=== PATIENT | female | born 1995 | race African-American/Black ===

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

== ENCOUNTER 2017-10-29 14:06 | Emergency (ER) | payer MEDICAID ==
[2017-10-29 14:40] VITALS: BP 111/67
[2017-10-29] MEDS ORDERED: HYDROCODONE/ACETAMINOPHEN 5-325 MG TABLET PO ONE (15:19)
[2017-10-29] MEDS ORDERED: PENICILLIN V POTASSIUM 500 MG TABLET PO ONE (15:19)
--- NOTE | 2017-10-29 15:23 | ER Document Report ---
HPI - HPI Patient complains to provider of: Dental pain Onset: Last week Onset/Duration: Persistent Quality of pain: Achy Pain Level: 4 Context: Patient presents complaining of for the past week. Patient states that she notices pus draining from around her gums whenever she pushes on them. Patient denies any fever. Associated Symptoms: Other - Dental pain. denies: Fever Exacerbated by: Denies Relieved by: Denies Similar symptoms previously: No Recently seen / treated by doctor: No - ROS ROS below otherwise negative: Yes Systems Reviewed and Negative: Yes All other systems reviewed and negative - CONSTITUTIONAL Constitutional: DENIES: Fever - EENT Notes: Dental pain - RESPIRATORY Respiratory: DENIES: Coughing - GASTROINTESTINAL Gastrointestinal: DENIES: Nausea, Patient vomiting - MUSCULOSKELETAL Musculoskeletal: DENIES: Back Pain, Neck Pain - DERM Skin Color: Normal Skin Problems: None Past Medical History - General Information source: Patient - Social History Smoking Status: Never Smoker Frequency of alcohol use: None Drug Abuse: None Occupation: None Lives with: Family Family History: Reviewed & Not Pertinent - Medical History Medical History: Negative Renal/ Medical History: Denies: Hx Peritoneal Dialysis Skin Medical History: Comment Only Hx MRSA - MRSA 11/08 BACK Surgical Hx: Negative Vertical Provider Document - CONSTITUTIONAL Agree With Documented VS: Yes General Appearance: No Apparent Distress - INFECTION CONTROL TRAVEL OUTSIDE OF THE [place] IN LAST 30 DAYS: No - HEENT HEENT: Atraumatic, Normocephalic. negative: Pharyngeal Exudate, Pharyngeal Tenderness, Pharyngeal Erythema, Tympanic Membrane Red, Tympanic Membrane Bulging Mouth Diagram: 1 - Gingival inflammation, purulent drainage able to be expressed, no sublingual or submental swelling, no trismus. - NECK Neck: Normal Inspection, Supple. negative: Lymphadenopathy-Left, Lymphadenopathy-Right - RESPIRATORY Respiratory: Breath Sounds Normal, No Respiratory Distress - CARDIOVASCULAR Cardiovascular: Regular Rate, Regular Rhythm - BACK Back: Normal Inspection - MUSCULOSKELETAL/EXTREMETIES Musculoskeletal/Extremeties: MAEW - NEURO Level of Consciousness: Awake, Alert, Appropriate Motor/Sensory: No Motor Deficit - DERM Integumentary: Warm, Dry Course - Vital Signs Vital signs: Temp Pulse Resp BP Pulse Ox 98.7 F 74 16 111/67 100 10/29/17 14:39 10/29/17 14:39 10/29/17 14:39 10/29/17 14:39 10/29/17 14:39 Discharge - Discharge Clinical Impression: Infected dental caries Condition: Stable Disposition: HOME, SELF-CARE Instructions: Dental Infection or Abscess ([facility]), Oral Narcotic Medication ([facility]) , Penicillins ([facility]) Additional Instructions: Return immediately for any new or worsening symptoms Followup with your primary care provider, call tomorrow to make a followup appointment Follow-up with a dental care provider Prescriptions: Hydrocodone/Acetaminophen [[place] 5-325 Tablet] 1 each PO Q4 PRN #8 tablet PRN Reason: Naproxen [Naprosyn 250 Nmg Tablet] 1 tab PO BID #14 tablet Penicillin V Potassium [Penicillin Vk 500 mg Tablet] 500 mg PO BID #20 tablet Referrals: [facility] [Provider Group] - Follow up as needed DENTISTRY [Provider Group] - Follow up as needed [facility] [Provider Group] - Follow up as needed
== END 2017-10-29 15:33 | disposition home or self-care (01) ==
LOC: ER 14:06
DX: K04.7 Periapical abscess without sinus (principal); K02.9 Dental caries, unspecified; K08.89 Other specified disorders of teeth and supporting structures
CPT/HCPCS: 99282; J3490

== ENCOUNTER 2018-12-21 17:36 | Emergency (ER) | payer SELFPAY ==
[2018-12-21 18:13] VITALS: BP 112/69
[2018-12-21] MEDS ORDERED: LIDOCAINE 5% (700 MG) TRANSDERMAL ADH..PATCH TP ONE (19:06)
[2018-12-21] MEDS ORDERED: KETOROLAC TROMETHAMINE 60 MG/2 ML SDV IM ONE (19:06)
[2018-12-21] MEDS ORDERED: ACETAMINOPHEN 325 MG TABLET PO ONE (19:06)
--- NOTE | 2018-12-21 19:13 | ER Document Report ---
HPI - HPI Patient complains to provider of: back pain Time Seen by Provider: 12/21/18 19:05 Pain Level: 2 Context: Healthy 23-year-old female presents the emergency department with chief complaint of lower back pain injured at work yesterday. She said that she woke up this morning and had pain in her left lower back. She said that it took her a while to get out of bed. She denies any urinary retention, bowel incontinence, saddle paresthesia, fevers, IV drug use. She denies any radiculopathy limb weakness or paresthesias. No other complaints - CONSTITUTIONAL Constitutional: DENIES: Fever, Chills - REPRODUCTIVE Reproductive: DENIES: : Past Medical History - Social History Smoking Status: Never Smoker Chew tobacco use (# tins/day): No Frequency of alcohol use: None Drug Abuse: None Family History: Reviewed & Not Pertinent Patient has suicidal ideation: No Patient has homicidal ideation: No Renal/ Medical History: Denies: Hx Peritoneal Dialysis Skin Medical History: Comment Only Hx MRSA - MRSA 11/08 BACK Vertical Provider Document - CONSTITUTIONAL Notes: PHYSICAL EXAMINATION: Reviewed vital signs and charting by RN GENERAL: Alert, interacts well. No acute distress. HEAD: Normocephalic, atraumatic. EYES: Pupils equal and round. Extraocular movements intact. ENT: Oral mucosa moist, tongue midline. NECK: Full range of motion. Trachea midline. ABDOMEN: soft, non-tender. No distention. Bowel sounds present BACK: No midline spinal tenderness, tenderness along the paraspinal muscles on the left side in the area of T12-L3 with no reproducible radiculopathy EXTREMITIES: Moves all 4 extremities spontaneously. No edema, No cyanosis. PSYCH: Normal affect, normal mood. SKIN: Warm, dry, normal turgor. No rashes or lesions noted. - INFECTION CONTROL TRAVEL OUTSIDE OF THE [place] IN LAST 30 DAYS: No Course - Re-evaluation Re-evalutation: 12/21/18 19:07 Presentation of a well appearing patient complaining of acute on chronic back pain. No rapid progression of symptoms, systemic symptoms including fevers, chills, weight loss, history of recent bacterial infection, bilateral symptoms, numbness, weakness, difficulty walking, urinary retention or bowel incontinence, personal history of cancer, immunosuppression, diabetes, known AAA, or history of IV drug use. Exam is without point tenderness over vertebral bodies, pulsatile abdominal mass, and patient has symmetric and intact lower extremity strength, sensation, and reflexes without clonus. 2+ symmetric medial malleolar and dorsalis pedis pulses Based on history and physical, I have a very low suspicion of a concerning etiology of pain including epidural compression syndrome, spinal infection, transverse myelitis, malignancy, abdominal aortic aneurysm, renal colic, acute lower extremity claudication, neurogenic claudication, ankylosing spondylitis, or other intra-abdominal process. Due to absence of concerning risk factors in history and physical as well as absence of rapidly progressive, severe, or bilateral symptoms, will defer imaging at this point. - Vital Signs Vital signs: Temp Pulse Resp BP Pulse Ox 98.3 F 87 18 112/69 97 12/21/18 18:12 12/21/18 18:12 12/21/18 18:12 12/21/18 18:12 12/21/18 18:12 Discharge - Discharge Clinical Impression: Low back pain Qualifiers: Chronicity: acute Back pain laterality: left Sciatica presence: without sciatica Qualified Code(s): M54.5 - Low back pain Condition: Good Disposition: HOME, SELF-CARE Instructions: Ice Packs ([facility]), Low Back Pain ([facility]), Pain Medication Injection ([facility]) Additional Instructions: You have been seen in the Emergency Department (ED) today for back pain. Your workup and exam have not shown any acute abnormalities and you are likely suffering from muscle strain or possible problems with your discs, but there is no treatment that will fix your symptoms at this time. Please take Motrin 600 mg every 6 hours and/or Tylenol every 6 hours for pain/inflammation. You should also purchase a local lidocaine cream such as "aspercreme with lidocaine" and use per bottle instructions to the affected area. Apply heat to the area as often as you are able. Continue to keep active and avoid prolonged periods of bed rest. Please follow up with your doctor as soon as possible regarding today's ED visit and your back pain. Return to the ED for worsening back pain, fever, weakness or numbness of either leg, or if you develop either (1) an inability to urinate or have bowel movements, or (2) loss of your ability to control your bathroom functions (if you start having "accidents"), or if you develop other new sympt oms that concern you.concern you. Prescriptions: Cyclobenzaprine HCl [Flexeril 5 mg Tablet] 1 - 2 tab PO TID PRN #15 tablet PRN Reason: Forms: Return to Work
== END 2018-12-21 19:23 | disposition home or self-care (01) ==
LOC: ER 17:36
DX: M54.5 Low back pain (principal); Z86.14 Personal history of Methicillin resistant Staphylococcus aureus infection
CPT/HCPCS: 96374; 99283; J1885

== ENCOUNTER 2018-12-26 21:20 | Emergency (ER) | payer SELFPAY ==
[2018-12-26 21:30] VITALS: BP 114/83
[2018-12-26 23:32] LABS: APPEARANCE,URINE CLEAR; BILIRUBIN,URINE NEGATIVE (NEGATIVE); COLOR,URINE YELLOW; GLUCOSE, URINE NEGATIVE (NEGATIVE); KETONES,URINE NEGATIVE (NEGATIVE); LEUKOCYTE ESTERASE,URINE SMALL (NEGATIVE); NITRITE,URINE NEGATIVE (NEGATIVE); PROTEIN,URINE NEGATIVE (NEGATIVE); URINE SPECIFIC GRAVITY 1.011; UROBILINOGEN,URINE NEGATIVE mg/dL (<2.0)
[2018-12-27] MEDS ORDERED: IBUPROFEN 600 MG TABLET PO ONE (02:20)
[2018-12-27] MEDS ORDERED: HYDROCODONE/ACETAMINOPHEN 5-325 MG TABLET PO ONE (02:20)
--- NOTE | 2018-12-27 02:21 | ER Document Report ---
ED General - General Chief Complaint: Urinary Problem Stated Complaint: POSSIBLE KIDNEY INFECTION Time Seen by Provider: 12/27/18 00:34 Mode of Arrival: Ambulatory Information source: Patient Notes: 23-year-old female presents with complaints of left flank pain, dysuria. Patient states that her back pain started 1 week prior to arrival. She was seen at that time and administered an injection and states that she had improvement of pain but that it returned 2 days ago when it is now associated with painful urination, increased urinary frequency. Patient denies hematuria, history of kidney stone. Patient states that she does have some mild white discharge. Patient only has sex with females. She denies prior history of STD. TRAVEL OUTSIDE OF THE [place] IN LAST 30 DAYS: No - HPI Onset: Just prior to arrival Onset/Duration: Sudden Quality of pain: Achy Severity: Mild Associated symptoms: Other - Dysuria, left flank pain. denies: Chest pain, Fever, Nausea, Vomiting, Shortness of breath Exacerbated by: Denies Relieved by: Denies Similar symptoms previously: Yes Recently seen / treated by doctor: Yes - Related Data Allergies/Adverse Reactions: No Known Allergies Allergy (Verified 12/02/18 17:55) Past Medical History - General Information source: Patient, [facility] Records - Social History Smoking Status: Never Smoker Chew tobacco use (# tins/day): No Frequency of alcohol use: None Drug Abuse: None Lives with: Family Family History: Reviewed & Not Pertinent Patient has suicidal ideation: No Patient has homicidal ideation: No - Medical History Medical History: Negative Renal/ Medical History: Denies: Hx Peritoneal Dialysis Skin Medical History: Comment Only Hx MRSA - MRSA 11/08 BACK Review of Systems - Review of Systems Notes: REVIEW OF SYSTEMS: CONSTITUTIONAL : Denies fever, chills, or sweats. Denies recent illness. Marquis es weight loss, recent hospitalizations. EENT: Denies visual changes, eye pain. Denies sore throat, oral lesions, difficulty swallowing. CARDIOVASCULAR: Denies chest pain. Denies palpitations. Denies lower extremity edema. RESPIRATORY: Denies cough. Denies shortness of breath, wheezing. GASTROINTESTINAL: Denies abdominal pain or distention. Denies nausea, vomiting, or diarrhea. Denies blood in vomitus, stools, or per rectum. Denies black, tarry stools. Denies constipation. GENITOURINARY: Denies difficulty urinating, +painful urination, +frequency, denies blood in urine, +vaginal discharge. MUSCULOSKELETAL: Denies neck pain or stiffness. Denies joint pain or swelling. SKIN: Denies rash, lesions or sores. HEMATOLOGIC : Denies easy bruising or bleeding. LYMPHATIC: Denies swollen glands. NEUROLOGICAL: Denies confusion or altered mental status. Denies loss of consciousness. Denies dizziness or lightheadedness. Denies headache. Denies weakness or paralysis. Denies problems difficulty with ambulation, slurred speech. Denies sensory loss, numbness, or tingling. Denies seizures. PSYCHIATRIC: Denies anxiety or stress. Denies depression, suicidal ideation, or homicidal ideation. Denies visual or auditory hallucinations. Physical Exam - Vital signs Vitals: Temp Pulse Resp BP Pulse Ox 97.9 F 70 18 114/83 99 12/26/18 21:29 12/26/18 21:29 12/26/18 21:29 12/26/18 21:29 12/26/18 21:29 - Notes Notes: PHYSICAL EXAMINATION: GENERAL: Well-appearing, well-nourished and in no acute distress. HEAD: Atraumatic, normocephalic. EYES: Pupils equal round and reactive to light, extraocular movements intact, conjunctiva are normal. ENT: Nares patent, oropharynx clear without exudates. Moist mucous membranes. NECK: Normal range of motion, supple without lymphadenopathy LUNGS: Breath sounds clear to auscultation bilaterally and equal. No wheezes rales or rhonchi. HEART: Regular rate and rhythm without murmurs ABDOMEN: Soft, tenderness with palpation to the left lower quadrant, nondistended abdomen. No guarding, no rebound. No masses appreciated. No CVA tenderness Female : Pelvic exam; External genitalia unremarkable. Speculum exam with thin white discharge. Vaginal wall unremarkable. Os closed. No cervical motion tenderness. No adnexal tenderness or masses appreciated. Swabs obtained for gonorrhea, chlamydia and wet prep. Musculoskeletal: Normal range of motion, no pitting or edema. No cyanosis. NEUROLOGICAL: Cranial nerves grossly intact. Normal speech, normal gait. Normal sensory, motor exams PSYCH: Normal mood, normal affect. SKIN: Warm, Dry, normal turgor, no rashes or lesions noted. Course - Re-evaluation Re-evalutation: 12/28/18 02:06 Laboratory 12/26/18 12/26/18 12/27/18 23:15 23:15 02:18 Urine Color YELLOW Urine Appearance CLEAR Urine pH 9.0 Ur Specific [place] 1.011 Urine Protein NEGATIVE Urine Glucose (UA) NEGATIVE Urine Ketones NEGATIVE Urine Blood NEGATIVE Urine Nitrite NEGATIVE Urine Bilirubin NEGATIVE Urine Urobilinogen NEGATIVE Ur Leukocyte Esterase SMALL H Urine WBC (Auto) 2 Urine RBC (Auto) 0 Squamous Epi Cells Auto 6 Urine Mucus (Auto) RARE Urine Ascorbic Acid NEGATIVE Urine HCG, Qual NEGATIVE Epi Cells (Wet Prep) Bacteria (Wet Prep) Trichomonas (Wet Prep) Vaginal WBC Vaginal RBC Vaginal Yeast Chlamydia DNA (PCR) NOT DETECTED N.gonorrhoeae DNA (PCR) NOT DETECTED 12/27/18 02:18 Urine Color Urine Appearance Urine pH Ur Specific [place] Urine Protein Urine Glucose (UA) Urine Ketones Urine Blood Urine Nitrite Urine Bilirubin Urine Urobilinogen Ur Leukocyte Esterase Urine WBC (Auto) Urine RBC (Auto) Squamous Epi Cells Auto Urine Mucus (Auto) Urine Ascorbic Acid Urine HCG, Qual Epi Cells (Wet Prep) 4+ EPITHELIALS SEEN Bacteria (Wet Prep) 4+ BACTERIA SEEN Trichomonas (Wet Prep) NO TRICHOMONAS SEEN Vaginal WBC 3+ WBCS SEEN Vaginal RBC NO RBCS SEEN Vaginal Yeast NO YEAST SEEN Chlamydia DNA (PCR) N.gonorrhoeae DNA (PCR) KUB X-Ray 12/27/18 02:52 IMPRESSION: Nonspecific bowel gas pattern copyright 2011 [employer]- All Rights Reserved Temp Pulse Resp BP Pulse Ox 97.9 F 70 18 114/83 99 12/26/18 21:29 12/26/18 21:29 12/26/18 21:29 12/26/18 21:29 12/26/18 21:29 12/28/18 02:06 History:23-year-old female presents with complaints of left flank pain, dysuria. Patient states that her back pain started 1 week prior to arrival. She was seen at that time and administered an injection and states that she had improvement of pain but that it returned 2 days ago when it is now associated with painful urination, increased urinary frequency. Patient denies hematuria, history of kidney stone. Patient states that she does have some mild white discharge. Patient only has sex with females. She denies prior history of STD. ED Course Patient evaluated. Vital signs were reviewed. Patient is afebrile, normotensive. Previous medical records and nursing notes reviewed. Patient does not appear toxic or dehydrated they are in no acuted distress Exam Findings: Tenderness palpation of left lower quadrant. Lab Findings: Wet mount consistent with bacterial vaginosis. Patient Interventions: Hydrocodone, Zofran, Flagyl Revaluation: Patient now complaining of a headache and was administered Reglan and Benadryl. Patient was evaluated and treated as appropriate for the patient's presenting symptoms and complaint, with consideration of any critical or life threatening conditions that may be associated with their obtained history and exam as noted above. All results were discussed with patient. Patient provided the opportunity to ask questions, and express concerns. Patient was educated on treatments based on their presumed diagnosis as noted above. At this time we will discharge the patient with return precautions and follow-up recommendations. Verbal discharge instructions given a the bedside. Medication warnings reviewed. Patient is in agreement with this plan and has verbalized understanding of return precautions. After careful consideration I feel that that patient can be safely discharged from the emergency department, they were advised to followup with a primary care physician in 2-3 days. Dictation on this chart was performed using voice recognition software and may result in unintended grammatical, spelling, syntax or errors. 12/28/18 02:07 12/28/18 02:08 - Vital Signs Vital signs: Temp Pulse Resp BP Pulse Ox 97.9 F 70 18 114/83 99 12/26/18 21:29 12/26/18 21:29 12/26/18 21:29 12/26/18 21:29 12/26/18 21:29 - Laboratory Laboratory results interpreted by me: 12/26/18 23:15 Ur Leukocyte Esterase SMALL H - Diagnostic Test Radiology reviewed: Image reviewed, Reports reviewed Discharge - Discharge Clinical Impression: Bacterial vaginosis, Dysuria Low back pain Qualifiers: Chronicity: chronic Back pain laterality: right Sciatica presence: without sciatica Qualified Code(s): M54.5 - Low back pain Condition: Good Disposition: HOME, SELF-CARE Instructions: Low Back Pain ([facility]), Urinary Tract Infection ([facility]), Vaginosis, Bacterial ([facility]) Additional Instructions: You are being treated for bacterial vaginosis, an overgrowth of normal bacteria in the vagina. You are being sent home on an antibiotic called metronidazole. Take exactly as directed. Never drink alcohol while taking this antibiotic. Please return if you develop abdominal pain, fever greater than 101F, some vomiting, or any other symptoms that are concerning to you. Prescriptions: Sulfamethoxazole/Trimethoprim [Bactrim Ds Tablet] 1 each PO BID 3 Days #6 tablet Metronidazole [Flagyl 500 mg Tablet] 500 mg PO BID 7 Days #14 tablet Ondansetron [Zofran Odt 4 mg Tablet] 1 - 2 tab PO Q4H PRN #15 tab.rapdis PRN Reason: For Nausea/Vomiting Forms: Return to Work
[2018-12-27 02:43] LABS: BACTERIA (WET MOUNT) 4+ BACTERIA SEEN; EPITHELIALS (WET MOUNT) 4+ EPITHELIALS SEEN; RBCS (WET MOUNT) NO RBCS SEEN; T.VAGINALIS (WET MOUNT) NO TRICHOMONAS SEEN; WBCS (WET MOUNT) 3+ WBCS SEEN; YEAST (WET MOUNT) NO YEAST SEEN
[2018-12-27] MEDS ORDERED: METRONIDAZOLE 500 MG TABLET PO ONE (03:20)
[2018-12-27] MEDS ORDERED: DIPHENHYDRAMINE HCL 25 MG CAPSULE PO ONE (03:22)
[2018-12-27] MEDS ORDERED: METOCLOPRAMIDE HCL 10 MG TABLET PO ONE (03:22)
--- NOTE | 2018-12-27 03:34 | RADIOLOGY REPORT (SQ) ---
EXAM DESCRIPTION: XR ABDOMEN 1 VIEW (KUB) COMPLETED DATE/TME: 12/27/2018 02:52 CLINICAL HISTORY: 23 years, Female, Abdominal pain COMPARISON: None. NUMBER OF VIEWS: 1 TECHNIQUE: Supine portable abdomen LIMITATIONS: None. FINDINGS: The bowel gas pattern is nonspecific. Moderate gas and stool throughout colon. Evaluation for free air limited on a supine view. Osseous structures are grossly intact IMPRESSION: Nonspecific bowel gas pattern copyright 2010 [employer] [facility] [employer]- All Rights Reserved
[2018-12-27 04:05] LABS: CHLAM PCR NOT DETECTED (NOT DETECT)
== END 2018-12-27 03:45 | disposition home or self-care (01) ==
LOC: ER 21:20
DX: N76.0 Acute vaginitis (principal); B96.89 Other specified bacterial agents as the cause of diseases classified elsewhere; M54.5 Low back pain; R10.9 Unspecified abdominal pain; R30.0 Dysuria; Z86.14 Personal history of Methicillin resistant Staphylococcus aureus infection
CPT/HCPCS: 36415; 74018; 81001; 81025; 87210; 87491; 87591; 99283

== ENCOUNTER 2019-06-17 11:19 | Emergency (ER) | payer SELFPAY ==
--- NOTE | 2019-06-17 11:43 | ER Document Report ---
ED Medical Screen (RME) - General Chief Complaint: Flank Pain Stated Complaint: FLANK PAIN Time Seen by Provider: 06/17/19 11:39 TRAVEL OUTSIDE OF THE [place] IN LAST 30 DAYS: No - HPI Notes: 06/17/19 11:42 Patient is a 23-year-old female no significant past medical history presents complaining of urinary burning, urgency, frequency, vaginal odor and discharge intermittently since January, but more recently over the past few days. Patient states that she does have some bilateral lower back pain that does not radiate. This has been for some time. Patient states that she has been treated for UTI a couple times since January. Denies drug allergies. No fever, chest pain, shortness of breath, abdominal pain. I have treated and performed a rapid initial assessment of this patient. A comprehensive ED assessment and evaluation of the patient, analysis of test results and completion of medical decision making process will be conducted by additional ED providers. PHYSICAL EXAMINATION: GENERAL: Well-appearing, well-nourished and in no acute distress. A&Ox4. Answers questions appropriately. Abdomen: Grossly nontender to palpation. No CVA tenderness. - Related Data Allergies/Adverse Reactions: No Known Allergies Allergy (Verified 12/02/18 17:55) Past Medical History - Social History Frequency of alcohol use: None Drug Abuse: Marijuana Renal/ Medical History: Denies: Hx Peritoneal Dialysis Skin Medical History: Comment Only Hx MRSA - MRSA 11/08 BACK Physical Exam - Vital signs Vitals: Temp Pulse Resp BP Pulse Ox 98.1 F 66 16 127/71 H 99 06/17/19 11:23 06/17/19 11:23 06/17/19 11:06/17/19 11:23 06/17/19 11:23 Course - Vital Signs Vital signs: Temp Pulse Resp BP Pulse Ox 98.1 F 66 16 127/71 H 99 06/17/19 11:23 06/17/19 11:23 06/17/19 11:23 06/17/19 11:23 06/17/19 11:23
[2019-06-17 12:23] LABS: ABSOLUTE LYMPHOCYTES (AUTO) 1.7 10^3/uL (0.5-4.7); ABSOLUTE MONOCYTES (AUTO) 0.4 10^3/uL (0.1-1.4); ABSOLUTE NEUT (AUTO) 4.9 10^3/uL (1.7-8.2); BASOPHILS % (AUTO) 0.4 % (0-2); EOSINOPHILS % (AUTO) 0.3 % (0-6); HEMATOCRIT 40.3 % (36.0-47.0); HEMOGLOBIN 13.6 g/dL (12.0-15.5); LYMPHOCYTES % (AUTO) 24.2 % (13-45); MEAN CORPUSCULAR HEMOGLOBIN 31.8 pg (27.0-33.4); MEAN CORPUSCULAR HGB CONC 33.7 g/dL (32.0-36.0); MEAN CORPUSCULAR VOLUME 94 fl (80-97); MONOCYTES % (AUTO) 5.5 % (3-13); PLATELET COUNT 170 10^3/uL (150-450); RED BLOOD COUNT 4.28 10^6/uL (3.72-5.28); RED CELL DISTRIBUTION WIDTH 13.9 % (11.5-14.0); SEGMENTED NEUTROPHILS % (AUTO) 69.6 % (42-78); TOTAL CELLS COUNTED % (AUTO) 100 %
[2019-06-17 12:25] LABS: BACTERIA (WET MOUNT) 4+ BACTERIA SEEN; EPITHELIALS (WET MOUNT) 4+ EPITHELIALS SEEN; T.VAGINALIS (WET MOUNT) NO TRICHOMONAS SEEN; WBCS (WET MOUNT) 2+ WBCS SEEN; YEAST (WET MOUNT) NO YEAST SEEN
[2019-06-17 12:41] LABS: ALBUMIN 4.3 g/dL (3.5-5.0); ALKALINE PHOSPHATASE 44 U/L (38-126); ANION GAP 7 (5-19); ASPARTATE AMINO TRANSFERASE 16 U/L (14-36); BILIRUBIN,TOTAL 0.5 mg/dL (0.2-1.3); BLOOD UREA NITROGEN 11 mg/dL (7-20); CALCIUM 9.6 mg/dL (8.4-10.2); CARBON DIOXIDE 28 mmol/L (22-30); CHLORIDE 104 mmol/L (98-107); GLUCOSE 80 mg/dL (75-110); POTASSIUM 4.4 mmol/L (3.6-5.0); TOTAL PROTEIN 7.3 g/dL (6.3-8.2)
[2019-06-17 12:42] LABS: APPEARANCE,URINE CLOUDY; BILIRUBIN,URINE NEGATIVE (NEGATIVE); COLOR,URINE YELLOW; GLUCOSE, URINE NEGATIVE (NEGATIVE); KETONES,URINE NEGATIVE (NEGATIVE); PROTEIN,URINE NEGATIVE (NEGATIVE); URINE SPECIFIC GRAVITY 1.023; UROBILINOGEN,URINE NEGATIVE mg/dL (<2.0)
[2019-06-17 13:49] LABS: CHLAM PCR NOT DETECTED (NOT DETECT)
--- NOTE | 2019-06-17 14:32 | ER Document Report ---
ED General - General Chief Complaint: Flank Pain Stated Complaint: FLANK PAIN Time Seen by Provider: 06/17/19 11:39 Notes: Patient is a 23-year-old female with no significant past medical history presents to the emergency department today with a chief complaint of lower back pain that began January 2019. Patient reports it was gradual in onset. She denies any precipitating injury or illness. States the pain is across the entire lower back in a horizontal fashion. Reports that the pain is worse with palpation and movement. She states that occasionally sends a sharp shooting pain down both legs and gives way to a numbness and tingling in both of the legs. She states that is however infrequent. She admits that she is been seen for this in multiple ERs in the past, diagnosed with multiple urinary tract infections and been on multiple antibiotics. She states that none of this has caused the pain in her back to improve. She also adds today that she is had a recent change in her vaginal discharge. States that is more than normal and has a yellowish color with a foul odor. She denies any known history of BV or any other STD. Denies any urinary complaints today. Denies fever, nausea, vomiting, diarrhea, chills, night sweats. Reports that she is never been . TRAVEL OUTSIDE OF THE [place] IN LAST 30 DAYS: No - Related Data Allergies/Adverse Reactions: No Known Allergies Allergy (Verified 12/02/18 17:55) Past Medical History - Social History Smoking Status: Current Every Day Smoker Frequency of alcohol use: None Drug Abuse: Marijuana Family History: Reviewed & Not Pertinent Patient has suicidal ideation: No Patient has homicidal ideation: No Renal/ Medical History: Denies: Hx Peritoneal Dialysis Skin Medical History: Comment Only Hx MRSA - MRSA 11/08 BACK Review of Systems - Review of Systems Genitourinary: Discharge Female Genitourinary: Vaginal discharge Musculoskeletal: Back pain -: Yes All other systems reviewed and negative Physical Exam - Vital signs Vitals: Temp Pulse Resp BP Pulse Ox 98.1 F 66 16 127/71 H 99 06/17/19 11:23 06/17/19 11:23 06/17/19 11:23 06/17/19 11:23 06/17/19 11:23 - General General appearance: Appears well, Alert In distress: None - Respiratory Respiratory status: No respiratory distress Chest status: Nontender Breath sounds: Normal Chest palpation: Normal - Cardiovascular Rhythm: Regular Heart sounds: Normal auscultation - Abdominal Inspection: Normal Distension: No distension Bowel sounds: Normal Tenderness: Nontender Organomegaly: No organomegaly - Back Back: Normal, Other - Tenderness to palpation bilateral paralumbar musculature, no deformity step-off or crepitus. No midline spinal tenderness. Normal straight leg raise bilaterally. 2+ DP/PT bilaterally. Patient able to elevate great toes bilaterally. Normal sensations reported per patient. - Extremities General upper extremity: Normal inspection, Nontender, Normal color, Normal ROM, Normal temperature General lower extremity: Normal inspection, Nontender, Normal color, Normal ROM, Normal temperature, Normal weight bearing. No: Bobbi's sign - Neurological Neuro grossly intact: Yes Cognition: Normal Orientation: AAOx4 Raymundo Coma Scale Eye Opening: Spontaneous [place] Coma Scale Verbal: Oriented [place] Coma Scale Motor: Obeys Commands [place] Coma Scale Total: 15 Speech: Normal Motor strength normal: LUE, RUE, LLE, RLE Sensory: Normal - Psychological Associated symptoms: Normal affect, Normal mood - Skin Skin Temperature: Warm Skin Moisture: Dry Skin Color: Normal Course - Re-evaluation Re-evalutation: 06/17/19 14:30 Patient elected to self swab while in triage. We discussed limitations of this including possible misplacement of swab in the vagina as well as limitations of diagnosis due to lack of visualization with a pelvic exam. The patient verbalizes that she understands but does not desire to have a pelvic exam here in the emergency department, she reports this is why she self swabbed. Her history and physical has a mixed presentation. She does appear to have increased bacterial content in the vagina, likely consistent with bacterial vaginosis given her discharge and odor. No evidence of UTI. Her back is tender to palpation and with movement likely revealing a musculoskeletal etiology. She reports in the past when she was treated with a lidocaine patch and Tylenol that her back pain did improve for a day or so. She denies any new injury, fall or trauma. She denies any urinary or bowel incontinence or retention. Denies any saddle anesthesia. Will treat for BV and myofascial back pain. I discussed with her the importance of outpatient follow-up with her primary doctor as well as with a gerontology aide as she has never seen 1. She reports that she is moving in 2 weeks and will call to set up a new patient appointment. I advised she return here or any ER immediately with any new, persistent or worsening symptoms. She verbalized understood and agreed. - Vital Signs Vital signs: Temp Pulse Resp BP Pulse Ox 98.1 F 66 16 127/71 H 99 06/17/19 11:23 06/17/19 11:23 06/17/19 11:23 06/17/19 11:23 06/17/19 11:23 - Laboratory Result Diagrams: 06/17/19 12:00 06/17/19 12:00 Laboratory results interpreted by me: 06/17/19 12:00 Leukocyte Esterase Rfl MODERATE H Discharge - Discharge Clinical Impression: Bacterial vaginosis Back pain Qualifiers: Back pain location: low back pain Chronicity: unspecified Back pain laterality: unspecified Sciatica presence: unspecified whether sciatica present Qualified Code(s): M54.5 - Low back pain Condition: Stable Disposition: HOME, SELF-CARE Instructions: Vaginosis, Bacterial ([facility]) Additional Instructions: Follow-up with your new gerontology aide in the next 2 weeks as discussed. Return here or any ER immediately with any new, persistent or worsening symptoms. Prescriptions: Metronidazole [Flagyl 500 mg Tablet] 500 mg PO Q12 #14 tablet Meloxicam [Mobic] 7.5 mg PO DAILY #30 tablet Methocarbamol [Robaxin 500 mg Tablet] 500 mg PO QID PRN #20 tablet PRN Reason:
[2019-06-17 14:59] VITALS: BP 112/70
== END 2019-06-17 15:01 | disposition home or self-care (01) ==
LOC: ER 11:19
DX: N76.0 Acute vaginitis (principal); B96.89 Other specified bacterial agents as the cause of diseases classified elsewhere; M54.5 Low back pain; R20.0 Anesthesia of skin; R20.2 Paresthesia of skin; M79.604 Pain in right leg; M79.605 Pain in left leg; F17.200 Nicotine dependence, unspecified, uncomplicated; F12.10 Cannabis abuse, uncomplicated
CPT/HCPCS: 36415; 80053; 81001; 81025; 85025; 87086; 87210; 87491; 87591

== ENCOUNTER 2020-02-05 17:51 | Emergency (ER) | payer SELFPAY ==
[2020-02-05] MEDS ORDERED: ACETAMINOPHEN 325 MG TABLET PO ONE (18:22)
--- NOTE | 2020-02-05 18:24 | ER Document Report ---
ED Medical Screen (RME) - General Chief Complaint: Pain With Urination Stated Complaint: LOW BACK PAIN,PAINFUL URINATION Time Seen by Provider: 02/05/20 18:17 Mode of Arrival: Ambulatory Information source: Patient Notes: HPI; 24-year-old female presents to the emergency room complaining of dysuria with flank pain and vaginal discharge for the past week. Complains of subjective fever and chills. Also complains of a vaginal rash. Denies any change in sexual partners. States she feels like she is not fully emptying her bladder. Taking Tylenol without relief. No medications today. PE: Alert and oriented x3. Mild distress noted. Lungs: Clear to auscultation without rales, rhonchi, wheezes. Heart: Regular rate rhythm without murmurs, rubs, gallops. I have greeted and performed a rapid initial assessment of this patient. A comprehensive ED assessment and evaluation of the patient, analysis of test results and completion of the medical decision making process will be conducted by additional ED providers. I have specifically instructed the patient or family members with the patient to immediately return to any nursing staff should anything change in the patient's condition or with their chief complaint. TRAVEL OUTSIDE OF THE [place] IN LAST 30 DAYS: No - Related Data Allergies/Adverse Reactions: No Known Allergies Allergy (Verified 12/02/18 17:55) Past Medical History Renal/ Medical History: Denies: Hx Peritoneal Dialysis Skin Medical History: Comment Only Hx MRSA - MRSA 11/08 BACK Physical Exam - Vital signs Vitals: Temp Pulse Resp BP Pulse Ox 97.2 F 86 16 131/76 H 98 02/05/20 18:00 02/05/20 18:00 02/05/20 18:00 02/05/20 18:00 02/05/20 18:00 Course - Vital Signs Vital signs: Temp Pulse Resp BP Pulse Ox 97.2 F 86 16 131/76 H 98 02/05/20 18:00 02/05/20 18:00 02/05/20 18:00 02/05/20 18:00 02/05/20 18:00
[2020-02-05 19:00] LABS: ABSOLUTE LYMPHOCYTES (AUTO) 2.9 10^3/uL (0.5-4.7); ABSOLUTE MONOCYTES (AUTO) 0.6 10^3/uL (0.1-1.4); ABSOLUTE NEUT (AUTO) 6.2 10^3/uL (1.7-8.2); BASOPHILS % (AUTO) 0.2 % (0-2); EOSINOPHILS % (AUTO) 0.3 % (0-6); HEMATOCRIT 40.5 % (36.0-47.0); HEMOGLOBIN 13.9 g/dL (12.0-15.5); LYMPHOCYTES % (AUTO) 29.5 % (13-45); MEAN CORPUSCULAR HEMOGLOBIN 32.3 pg (27.0-33.4); MEAN CORPUSCULAR HGB CONC 34.4 g/dL (32.0-36.0); MEAN CORPUSCULAR VOLUME 94 fl (80-97); MONOCYTES % (AUTO) 6.3 % (3-13); PLATELET COUNT 180 10^3/uL (150-450); RED BLOOD COUNT 4.32 10^6/uL (3.72-5.28); RED CELL DISTRIBUTION WIDTH 13.4 % (11.5-14.0); SEGMENTED NEUTROPHILS % (AUTO) 63.7 % (42-78); TOTAL CELLS COUNTED % (AUTO) 100 %; WHITE BLOOD COUNT 9.7 10^3/uL (4.0-10.5)
[2020-02-05 19:06] LABS: APPEARANCE,URINE SLIGHTLY-CLOUDY; BILIRUBIN,URINE NEGATIVE (NEGATIVE); COLOR,URINE YELLOW; GLUCOSE, URINE NEGATIVE (NEGATIVE); KETONES,URINE 20 mg/dL (NEGATIVE); LEUKOCYTE ESTERASE,URINE SMALL (NEGATIVE); NITRITE,URINE NEGATIVE (NEGATIVE); PROTEIN,URINE NEGATIVE (NEGATIVE); URINE SPECIFIC GRAVITY 1.021; UROBILINOGEN,URINE NEGATIVE mg/dL (<2.0)
[2020-02-05 19:18] LABS: ALBUMIN 4.8 g/dL (3.5-5.0); ALKALINE PHOSPHATASE 44 U/L (38-126); ANION GAP 11 (5-19); ASPARTATE AMINO TRANSFERASE 21 U/L (14-36); BILIRUBIN,DIRECT 0.1 mg/dL (0.0-0.4); BILIRUBIN,TOTAL 0.9 mg/dL (0.2-1.3); BLOOD UREA NITROGEN 12 mg/dL (7-20); CALCIUM 10.1 mg/dL (8.4-10.2); CARBON DIOXIDE 27 mmol/L (22-30); CHLORIDE 101 mmol/L (98-107); GLUCOSE 78 mg/dL (75-110); POTASSIUM 3.3 mmol/L (3.6-5.0); TOTAL PROTEIN 7.9 g/dL (6.3-8.2)
--- NOTE | 2020-02-05 22:01 | ER Document Report ---
ED General - General Chief Complaint: Abdominal Pain Stated Complaint: LOW BACK PAIN,PAINFUL URINATION Time Seen by Provider: 02/05/20 18:17 Mode of Arrival: Ambulatory TRAVEL OUTSIDE OF THE [place] IN LAST 30 DAYS: No - HPI Notes: Patient is a 24-year-old female who presents to the emergency department for evaluation. She states that she was treated here about a year ago for bacterial vaginosis. She states it never really got any better. She took all of the antibiotics. She states she continues to have vaginal discharge that is foul- smelling. She also states she has some "bumps" that she noted in that area, but cannot tell me how long they have been there. She states she is sexually active, but she has not had sex "in a long time." The patient also states she is had low back pain for the last month or 2. She states she has pain "up by my kidneys" as well. She has had no fevers, but states she has had some chills. No nausea or vomiting. She states that she feels like she has to urinate frequently. She empties her bladder, but then states 10 minutes later she has another round of urination which she states is full. - Related Data Allergies/Adverse Reactions: No Known Allergies Allergy (Verified 12/02/18 17:55) Home Medications: None Past Medical History - General Information source: Patient - Social History Smoking Status: Current Every Day Smoker Frequency of alcohol use: Occasional Drug Abuse: Marijuana Family History: Reviewed & Not Pertinent, Hypertension - Mother Patient has homicidal ideation: No - Medical History Medical History: Negative Renal/ Medical History: Denies: Hx Peritoneal Dialysis Skin Medical History: Reports Hx MRSA - MRSA 11/08 BACK Past Surgical History: Reports: Hx Tonsillectomy Review of Systems - Review of Systems Constitutional: See HPI EENT: No symptoms reported Cardiovascular: No symptoms reported Respiratory: No symptoms reported Gastrointestinal: No symptoms reported Genitourinary: See HPI Female Genitourinary: See HPI Musculoskeletal: See HPI Skin: No symptoms reported Neurological/Psychological: No symptoms reported Physical Exam - Vital signs Vitals: Temp Pulse Resp BP Pulse Ox 97.2 F 86 16 131/76 H 98 02/05/20 18:00 02/05/20 18:00 02/05/20 18:00 02/05/20 18:00 02/05/20 18:00 - Notes Notes: Vital signs reviewed, please refer to chart. Head is normocephalic, atraumatic. Pupils equal round, reactive to light. Neck is supple without meningismus. Heart is regular rate and rhythm. Lungs are clear to auscultation bilaterally. Abdomen is soft, nontender, normoactive bowel sounds throughout. Extremities without cyanosis, clubbing. Posterior calves are nontender. Peripheral pulses are equal. Skin is warm and dry. Patient is awake, alert, neurological exam is nonfocal. Pelvic exam performed with JORGE Bah, present at bedside. Patient has normal external genitalia. She has erythematous and inflamed appearing vaginal mucosa, mild inflammation and erythema of the cervix consistent with a possible cervicitis. Cervical os is closed. Moderate amount of yellow-green discharge, no significant odor noted. Course - Re-evaluation Re-evalutation: 02/05/20 22:00 Patient presents to the emergency department for evaluation. Laboratory investigations were obtained. The only abnormality was potassium was mildly low at 3.3, I am not inclined to treat that at this time. The patient was notified of this, told to increase bananas/apricots/high potassium containing foods. She voiced understanding. Otherwise awaiting pelvic. 02/05/20 22:44 Moderate amount of discharge, nonphysiological appearing, present on exam. Will treat worth ceftriaxone, Zithromax, Flagyl. Patient is very anxious to leave, states she has to work tomorrow. I do not see a need to wait for a wet prep and I plan to treat her for bacterial vaginosis at this time anyway. I do not have a clear etiology for her lower back pain. She is told to take [id number] anti-inflammatories, moist heat to the area, follow-up with primary care. She voiced understanding. Otherwise she is being treated empirically for gonorrhea and chlamydia, as well as bacterial vaginosis. She is to return to the ED with worsening or new concerning symptoms of any sort. - Vital Signs Vital signs: Temp Pulse Resp BP Pulse Ox 97.2 F 86 16 131/76 H 98 02/05/20 18:00 02/05/20 18:00 02/05/20 18:00 02/05/20 18:00 02/05/20 18:00 - Laboratory Result Diagrams: 02/05/20 18:35 02/05/20 18:35 Laboratory results interpreted by me: 02/05/20 02/05/20 18:28 18:35 Potassium 3.3 L Urine Ketones 20 H Ur Leukocyte Esterase SMALL H Urine Ascorbic Acid 40 H Discharge - Discharge Clinical Impression: Bacterial vaginosis, Vaginal discharge Low back pain Qualifiers: Chronicity: acute Back pain laterality: bilateral Sciatica presence: without sciatica Qualified Code(s): M54.5 - Low back pain Condition: Stable Disposition: HOME, SELF-CARE Instructions: Low Back Pain ([facility]), Vaginosis, Bacterial ([facility]) Additional Instructions: You have been treated empirically for gonorrhea, chlamydia, and bacterial vaginosis. Please do not drink any alcohol while taking Flagyl. You will be contacted if your gonorrhea and/or chlamydia become positive. You should follow-up with an HOG DRIVER. In regards to your back pain, no clear cause was identified. Moist heat to the area. [id number] Tylenol or ibuprofen as needed. Return to the emergency department if you develop worsening or new concerning symptoms of any sort.
[2020-02-05] MEDS ORDERED: AZITHROMYCIN 250 MG TABLET PO ONE (22:43)
[2020-02-05] MEDS ORDERED: METRONIDAZOLE 500 MG TABLET PO ONE (22:43)
[2020-02-05] MEDS ORDERED: CEFTRIAXONE INJ 250 MG VIAL IM ONE (22:43)
[2020-02-05] MEDS ORDERED: LIDOCAINE 1% INJ-PF (10 MG/ML) 30 ML SDV ONE (22:58)
[2020-02-05 23:06] VITALS: BP 110/71
[2020-02-05 23:07] LABS: BACTERIA (WET MOUNT) 4+ BACTERIA SEEN; EPITHELIALS (WET MOUNT) 3+ EPITHELIALS SEEN; RBCS (WET MOUNT) NO RBCS SEEN; T.VAGINALIS (WET MOUNT) NO TRICHOMONAS SEEN; WBCS (WET MOUNT) 4+ WBCS SEEN; YEAST (WET MOUNT) NO YEAST SEEN
[2020-02-06 00:40] LABS: CHLAM PCR NOT DETECTED (NOT DETECT)
== END 2020-02-05 23:07 | disposition home or self-care (01) ==
LOC: ER 17:51
DX: N76.0 Acute vaginitis (principal); B96.89 Other specified bacterial agents as the cause of diseases classified elsewhere; M54.5 Low back pain; R68.83 Chills (without fever); F17.200 Nicotine dependence, unspecified, uncomplicated; F12.10 Cannabis abuse, uncomplicated
CPT/HCPCS: 99284; 96372; 36415; 87210; 84703; 85025; 80053; 81001; 87491; 87591; J3490; J0696